=== PATIENT | female | born 2000 | race Caucasian/White ===

== ENCOUNTER 2023-02-19 18:17 | Emergency (ER) | payer OTHER ==
[~2023-02-19] VITALS: Ht 154.9 cm; Wt 60.8 kg
[2023-02-19 18:35] VITALS: BP_SYST 137
[2023-02-19] MEDS ORDERED: IBUPROFEN 800 MG TABLET PO ONE (19:15)
[2023-02-19] MEDS ORDERED: AMOXICILLIN/POTASSIUM CLAV 875 MG TABLET PO ONE (19:15)
[2023-02-19] MEDS ORDERED: AUG875 PO (19:25)
[2023-02-19] MEDS ORDERED: IBUP-1970 PO (19:25)
[2023-02-19 19:30] VITALS: BP_SYST 122
== END 2023-02-19 19:30 | disposition home or self-care (01) ==
LOC: SED 18:17
DX: S61.031A Puncture wound without foreign body of right thumb without damage to nail, initial encounter (principal); E11.9 Type 2 diabetes mellitus without complications; I10 Essential (primary) hypertension; Z79.899 Other long term (current) drug therapy; W54.0XXA Bitten by dog, initial encounter; Y93.89 Activity, other specified; Y92.89 Other specified places as the place of occurrence of the external cause; Y99.8 Other external cause status
CPT/HCPCS: 73140-TC; 99283